=== PATIENT | female | born 1995 | race Caucasian/White ===

== ENCOUNTER → 2016-09-08 | Outpatient (CLI) | payer OTHER ==
[~2016-09-08] MED LIST: IBUP80TA PO; LEVO88TA3 PO; PERCOCET PO
--- NOTE | 2016-09-08 16:14 | REP ---
Soft-tissue ultrasound right wrist: History: Lump over the dorsum of the right wrist. Findings: Sonography over the palpable lump at the dorsum aspect of the right wrist at the level of the carpal bones shows two small fluid collections consistent with ganglion cyst. One appears superficial to the tendons and measures 3 mm. The other is seen deep to the extensor tendons and measures 5 mm in greatest diameter. No other abnormality is appreciated. Impression: Findings consistent with small ganglion cysts. Signed by Severo Mercado MD 09/08/2016 05:00 P
== END ==
LOC: M RAD 14:20
PROVIDERS: ATTEND Nurse Practitioner Adult Health
DX: M67.431 Ganglion, right wrist (principal)

== ENCOUNTER → 2018-02-05 | Outpatient (REF) | payer OTHER, MEDICAID ==
[2018-02-05 12:47] LABS: BASO % 0.2 % (0.0-1.0); EOS # 0.1 10^3/uL (0.0-0.50); EOS % 1.1 % (0.0-3.0); HEMATOCRIT 41.4 % (36.0-47.0); HEMOGLOBIN 13.5 g/dl (12.0-15.5); IMMATURE GRANULOCYTE % 0.2 % (0-3.0); LYMPH # 1.7 10^3/uL (1.5-6.5); LYMPH % 29.9 % (24.0-44.0); MEAN CORPUSCULAR HEMOGLOBIN 29.2 pg (27.0-33.0); MEAN CORPUSCULAR HGB CONC 32.6 g/dl (32.0-36.5); MEAN CORPUSCULAR VOLUME 89.6 fl (80.0-96.0); MONO # 0.5 10^3/uL (0.0-0.8); MONO % 8.9 % (0.0-5.0); NEUTROPHILS # 3.4 10^3/uL (1.8-7.7); NEUTROPHILS % 59.7 % (36.0-66.0); PLATELET COUNT, AUTOMATED 216 10^3/uL (150-450); RED BLOOD COUNT 4.62 10^6/uL (4.00-5.40); RED CELL DISTRIBUTION WIDTH 13.6 % (11.5-14.5); WHITE BLOOD COUNT 5.7 10^3/uL (4.0-10.0)
[2018-02-05 13:15] LABS: TOTAL 25(OH) VITAMIN D 15.6 NG/ML (30.0-100.0)
[2018-02-05 13:20] LABS: ALBUMIN 4.1 GM/DL (3.2-5.2); ALBUMIN/GLOBULIN RATIO 1.32 (1.00-1.93); ALKALINE PHOSPHATASE 46 U/L (45-117); ALT/SGPT 15 U/L (12-78); ANION GAP 9 MEQ/L (8-16); AST/SGOT 8 U/L (7-37); BILIRUBIN,TOTAL 0.5 MG/DL (0.2-1.0); BLOOD UREA NITROGEN 10 MG/DL (7-18); CARBON DIOXIDE LEVEL 26 MEQ/L (21-32); CHLORIDE LEVEL 107 MEQ/L (98-107); CREATININE FOR GFR 0.71 MG/DL (0.55-1.30); GLOMERULAR FILTRATION RATE > 60.0 (>60); GLUCOSE, FASTING 74 MG/DL (70-100); IRON (FE) 137 UG/DL (50-170); POTASSIUM SERUM 4.4 MEQ/L (3.5-5.1); SODIUM LEVEL 142 MEQ/L (136-145); T UPTAKE 29 % (30-39); THYROXINE (T4) 5.8 UG/DL (4.5-12.0); TOTAL PROTEIN 7.2 GM/DL (6.4-8.2)
[2018-02-05 13:21] LABS: FREE THYROXINE INDEX 1.7 % (1.3-4.8)
== END ==
LOC: M LAB REF 12:35
DX: E03.9 Hypothyroidism, unspecified (principal)

== ENCOUNTER → 2018-03-22 | Outpatient (REF) | payer OTHER ==
[2018-03-22 14:59] LABS: CHLAMYDIA DNA AMPLIFICATION NEGATIVE (NEGATIVE); GC DNA AMPLIFICATION NEGATIVE (NEGATIVE)
== END ==
LOC: M WUC 12:24
DX: N39.0 Urinary tract infection, site not specified (principal)
CPT/HCPCS: 87186

== ENCOUNTER → 2018-05-27 | Outpatient (REF) | payer OTHER ==
[2018-05-27 20:12] LABS: CHLAMYDIA DNA AMPLIFICATION NEGATIVE (NEGATIVE); GC DNA AMPLIFICATION NEGATIVE (NEGATIVE)
== END ==
LOC: M LAB REF 17:14
DX: R30.0 Dysuria (principal)

== ENCOUNTER → 2018-06-21 | Outpatient (REF) | payer OTHER ==
[2018-06-21 19:58] LABS: TOTAL 25(OH) VITAMIN D 47.2 NG/ML (30.0-100.0)
== END ==
LOC: M LAB REF 18:53
DX: E55.9 Vitamin D deficiency, unspecified (principal)
CPT/HCPCS: 82306

== ENCOUNTER → 2019-10-07 | Outpatient (REF) | payer OTHER ==
[2019-10-07 17:16] LABS: HEMATOCRIT 38.8 % (36.0-47.0); HEMOGLOBIN 12.5 g/dl (12.0-15.5); MEAN CORPUSCULAR HEMOGLOBIN 29.2 pg (27.0-33.0); MEAN CORPUSCULAR HGB CONC 32.2 g/dl (32.0-36.5); MEAN CORPUSCULAR VOLUME 90.7 fl (80.0-96.0); PLATELET COUNT, AUTOMATED 208 10^3/uL (150-450); RED BLOOD COUNT 4.28 10^6/uL (4.00-5.40); WHITE BLOOD COUNT 11.2 10^3/uL (4.0-10.0)
[2019-10-07 17:34] LABS: CREATININE,RANDOM URINE 25.9 MG/DL; TOTAL PROTEIN,RANDOM URINE < 5.0 MG/DL (0.0-12.0)
[2019-10-07 17:37] LABS: ALT/SGPT 14 U/L (12-78); BILIRUBIN,TOTAL 0.3 MG/DL (0.2-1.0); GLOMERULAR FILTRATION RATE > 60.0 (>60); LDH LACTATE DEHYDROGENASE 127 U/L (84-246); URIC ACID 2.5 MG/DL (2.6-6.0)
[2019-10-07 17:59] LABS: HEPATITIS B SURFACE ANTIGEN NEGATIVE (NEGATIVE); RUBELLA IgG QUALITATIVE IMMUNE (IMMUNE)
[2019-10-07 18:27] LABS: HEPATITIS C VIRUS ABY INDEX 0.1 INDEX (<0.8)
[2019-10-07 18:28] LABS: HIV 1&2 SCREEN CENTAUR NEGATIVE (NEGATIVE)
[2019-10-07 18:48] LABS: CHLAMYDIA DNA AMPLIFICATION NEGATIVE (NEGATIVE); GC DNA AMPLIFICATION NEGATIVE (NEGATIVE)
== END ==
LOC: M PLALAB 14:17
PROVIDERS: ATTEND Advanced Practice Midwife
DX: O34.211 Maternal care for low transverse scar from previous cesarean delivery (principal); Z3A.00 Weeks of gestation of pregnancy not specified

== ENCOUNTER → 2019-11-11 | Outpatient (CLI) | payer OTHER | LOC: M WHC 11:19 | PROVIDERS: ATTEND Advanced Practice Midwife | DX: Z53.9 Procedure and treatment not carried out, unspecified reason (principal); O34.211 Maternal care for low transverse scar from previous cesarean delivery; Z3A.00 Weeks of gestation of pregnancy not specified ==

== ENCOUNTER → 2019-11-13 | Outpatient (REF) | payer OTHER ==
[2019-11-13 18:59] LABS: FREE T4 0.86 NG/DL (0.76-1.46); THYROID STIMULATING HORMONE 7.51 uIU/ML (0.358-3.740)
== END ==
LOC: M PLALAB 09:07
PROVIDERS: ATTEND Advanced Practice Midwife
DX: O99.282 Endocrine, nutritional and metabolic diseases complicating pregnancy, second trimester (principal); O34.211 Maternal care for low transverse scar from previous cesarean delivery; Z12.4 Encounter for screening for malignant neoplasm of cervix; Z3A.00 Weeks of gestation of pregnancy not specified

== ENCOUNTER → 2019-12-10 | Outpatient (CLI) | payer OTHER ==
--- NOTE | 2019-12-10 18:26 | REP ---
Clinical: Anatomical evaluation. Comparison: None . Findings: Examination demonstrates a single live intrauterine in transverse presentation. motion is identified by technologist. Placenta is noted anterior and grade I with placental tip crossing the closed internal os on transvaginal images. Amniotic fluid volume is normal. Cervix measures 4.2 cm in length and appears closed. No evidence for nuchal cord. Gestational age by LMP 18 weeks 5 days with LUPE 05/07/2020 . Gestational age by current measurements 18 weeks 3 days with LUPE 05/09/2020 . FHR equals 136 beats per minute. BPD 4.0 cm 18 weeks 1 day HC 15.7 cm 18 weeks 4 days AC 12.6 cm 18 weeks 1 day FL 2.8 cm 18 weeks 4 days HL 2.7 cm 18 weeks 6 days HC/AC ratio 1.25 Estimated weight 237 grams ( 35th percentile). Anatomical assessment demonstrates normal structures including cranium, choroid plexus, cavum, cerebellum/posterior fossa, facial features, lungs, four-chamber heart/ventricular outflow tracts, diaphragm, stomach, cord insertion/three-vessel cord, kidneys/bladder, spine, and extremities. Impression: 1. Single live intrauterine in transverse lie demonstrating appropriate interval growth. 2. Anatomical assessment is complete and normal. 3. Placenta previa cannot be excluded.
== END ==
LOC: M WHC 14:32
PROVIDERS: ATTEND Advanced Practice Midwife
DX: O34.211 Maternal care for low transverse scar from previous cesarean delivery (principal)

== ENCOUNTER → 2019-12-24 | Outpatient (REF) | payer OTHER ==
[~2019-12-24] MED LIST changes: +PRENTAB9 PO; +SYNT50TA PO
[2019-12-24 18:11] LABS: FREE T4 1.02 NG/DL (0.76-1.46); THYROID STIMULATING HORMONE 1.75 uIU/ML (0.358-3.740)
== END ==
LOC: M PLALAB 14:31
PROVIDERS: ATTEND Advanced Practice Midwife
DX: O99.280 Endocrine, nutritional and metabolic diseases complicating pregnancy, unspecified trimester (principal)

== ENCOUNTER → 2020-01-09 | Outpatient (CLI) | payer OTHER ==
[~2020-01-09] MED LIST changes: -PRENTAB9 PO; -SYNT50TA PO
--- NOTE | 2020-01-09 16:29 | REP ---
Clinical: Placental location Comparison: 12/10/2019 . Findings: Examination demonstrates a single live intrauterine in cephalic presentation. motion is identified by technologist. Placenta is noted anterior and grade I without evidence for placenta previa or abruption. Amniotic fluid volume is normal. Cervix measures 3.5 cm in length and appears closed. No evidence for nuchal cord. Gestational age by LMP 23 weeks 0 days with LUPE 05/07/2020 . Gestational age by current measurements 22 weeks 4 days with LUPE 05/10/2020 . FHR equals 152 beats per minute. Estimated weight 560 grams ( 47th percentile). Impression: 1. Single live intrauterine in cephalic presentation demonstrating appropriate interval growth. 2. Anterior grade 1 placenta without evidence for placenta previa. Cervix measures 3.5 cm in length and is closed.
== END ==
LOC: M WHC 15:35
PROVIDERS: ATTEND Advanced Practice Midwife
DX: Z34.82 Encounter for supervision of other normal pregnancy, second trimester (principal)

== ENCOUNTER → 2020-02-06 | Outpatient (CLI) | payer OTHER ==
[~2020-02-06] MED LIST changes: +PRENTAB9 PO; +SYNT50TA PO
--- NOTE | 2020-03-26 15:21 | REP ---
LIMITED OBSTETRIC SONOGRAPHY HISTORY: Supervision of . Follow-up placenta previa. Transvaginal scanning. FINDINGS: Transabdominal and transvaginal scanning are performed. Scanning demonstrates a viable single intrauterine gestation in a breech lie. The placenta is anterior grade 1. The inferior tip of the anterior placenta is visualized transabdominally approximately 6.9 cm from the cervical os internally. There is no evidence of placenta previa. Closed cervical length measured transvaginally is 4.3 cm. heart rate is recorded at 140 beats per minute. Amniotic fluid is subjectively normal. LORETTA is normal at 17.0 cm. Four chamber heart, left-sided stomach, kidneys and bladder, abdominal wall cord insertion, and three-vessel cord are identified. IMPRESSION: No evidence of placenta previa. MTDD
== END ==
LOC: M WHC 10:10
PROVIDERS: ATTEND Advanced Practice Midwife
DX: Z34.82 Encounter for supervision of other normal pregnancy, second trimester (principal)

== ENCOUNTER → 2020-02-20 | Outpatient (REF) | payer OTHER ==
[2020-03-26 07:34] LABS: HEMATOCRIT 30.3 % (36.0-47.0); HEMOGLOBIN 9.9 g/dl (12.0-15.5); MEAN CORPUSCULAR HEMOGLOBIN 30.7 pg (27.0-33.0); MEAN CORPUSCULAR HGB CONC 32.7 g/dl (32.0-36.5); MEAN CORPUSCULAR VOLUME 93.8 fl (80.0-96.0); PLATELET COUNT, AUTOMATED 189 10^3/uL (150-450); RED BLOOD COUNT 3.23 10^6/uL (4.00-5.40)
[2020-04-08 07:22] LABS: FREE T4 0.94 NG/DL (0.76-1.46); THYROID STIMULATING HORMONE 3.06 uIU/ML (0.358-3.740)
== END ==
LOC: M SFHCWAGY 11:37
PROVIDERS: ATTEND Advanced Practice Midwife
DX: Z34.82 Encounter for supervision of other normal pregnancy, second trimester (principal)

== ENCOUNTER → 2020-04-09 | Outpatient (REF) | payer OTHER | LOC: M SFHCWAGY 16:46 | PROVIDERS: ATTEND Advanced Practice Midwife | DX: O34.211 Maternal care for low transverse scar from previous cesarean delivery (principal) ==

== ENCOUNTER 2020-04-20 16:36 | Inpatient (IN) | payer OTHER ==
[~2020-04-20] VITALS: Ht 157.5 cm; Wt 72.8 kg
[~2020-04-20 16:36] MED LIST changes: -PRENTAB9 PO; -SYNT50TA PO
[2020-04-20] MEDS ORDERED: PRENTAB9 PO (16:51)
[2020-04-20] MEDS ORDERED: SYNT50TA PO (16:57)
[2020-04-20 17:06] VITALS: BP 140/82
[2020-04-20 17:22] VITALS: BP 137/72
[2020-04-20 17:37] VITALS: BP 133/78
[2020-04-20 17:52] VITALS: BP 131/84
[2020-04-20 18:11] LABS: HEMATOCRIT 30.7 % (36.0-47.0); HEMOGLOBIN 9.9 g/dl (12.0-15.5); MEAN CORPUSCULAR HEMOGLOBIN 27.7 pg (27.0-33.0); MEAN CORPUSCULAR HGB CONC 32.2 g/dl (32.0-36.5); MEAN CORPUSCULAR VOLUME 85.8 fl (80.0-96.0); PLATELET COUNT, AUTOMATED 217 10^3/uL (150-450); RED BLOOD COUNT 3.58 10^6/uL (4.00-5.40); WHITE BLOOD COUNT 10.4 10^3/uL (4.0-10.0)
[2020-04-20 18:30] LABS: ALT/SGPT 16 U/L (12-78); BILIRUBIN,TOTAL 0.5 MG/DL (0.2-1.0); CREATININE FOR GFR 0.45 MG/DL (0.55-1.30); GLOMERULAR FILTRATION RATE > 60.0 (>60); LDH LACTATE DEHYDROGENASE 217 U/L (84-246); URIC ACID 3.2 MG/DL (2.6-6.0)
[2020-04-20 18:30] LABS: CREATININE,RANDOM URINE 60.2 MG/DL; TOTAL PROTEIN,RANDOM URINE 16.9 MG/DL (0.0-12.0)
[2020-04-20] MEDS: LR 1,000 ML IV SCH (19:18)
[2020-04-20] MEDS ORDERED: LACTATED RINGER'S 1000 ML IV STA (19:18)
--- NOTE | 2020-04-20 19:23 | HPEPDOC ---
Obstetrical History & Physical General Date of Admission Apr 20, 2020 at 16:36 Primary Care Physician: FABY NOEL CNM History of Present Illness Zack is a 25-year-old female who is a at 37.4 weeks gestation with an LUPE of 05/07/20. She initiated care in her first trimester with WW. Her preg tran has been complicated by a prior section, a history of preeclampsia and hypothyroidism. She was sent over from the office today with complaints of irregular headaches and was found to have an elevated BP in the office. She desires a repeat section. She rpeorts active mov ement. She denies contractions, leaking of fluid, preeclamptic symptoms currently, and vaginal bleeding. Chief Complaint: Gestational Hypertension, section Information Provided By: Patient Age: 25 : 2 Term: 1 Pre-term: 0 Abortions: 1 Livin Care Care: Good Care Dating Final EDC: May 07, 2020 LMP: Aug 01, 2019 EGA at Admission: 37.4 Antepartum Course Diagnos(e)s GHTN; prior section; hypothyroidism Height (inches): 62 Pre- weight (lbs.): 135 Admission Weight (lbs.): 160 Change in Weight (lbs.): 25 Past Medical History Past Obstetrical History : Past Obstetrical History: Primgravida Date of Delivery: Feb 26, 2015 Gestation: 37 Type of Delivery: Ceserean section (multiple late decelerations with placental abruption (50%)) Sex of : Male Complications: Yes (preeclampsia) [employer] History: No pertinent history Past Medical History Medical History José's thyroiditis Surgical History: section Family History Significant Family History: No pertinent family hx Social History Family situation: Spouse/partner home * Smoker: non-smoker Alcohol: Denies Drugs: denies Allergies Coded Allergies: No Known Allergies (Unverified , 02/25/15) Medications Scheduled Levothyroxine Sodium (Synthroid) 50 Mcg Tablet, 50 MCG PO DAILY No.137/Iron/Folic Acd ( Vitamin Tablet) 1 Each Tablet, 1 TAB PO DAILY Physical Examination Physical Examination GENERAL: Alert and oriented times three. ABDOMEN: Gravid and non-tender to touch. FETUS: Is vertex (VTX) by sterile vaginal examination (SVE), fetus is vertex (VTX) by Sarabjit. HEART RATE: Regular rate and rhythm. LUNGS: Clear to auscultation (CTA). EXTREMITIES: Generalized edema. No clonus. Deep tendon reflexes (DTRs) + 1. Vital Signs/I&O Vital Signs Date Time Temp Pulse Resp B/P (MAP) Pulse Ox O2 Delivery O2 Flow Rate FiO2 04/20/20 17:52 103 18 131/84 (100) 04/20/20 17:06 99.1 Laboratory Data 24H LABS Laboratory Tests 2 04/20/20 16:49: Serology Scanned Report Hepatitis B Testing 04/20/20 17:39: Urine Random Creatinine 60.2, Urine Random Total Protein 16.9H 04/20/20 17:40: Nucleated Red Blood Cells % (auto) 0.0, Glomerular Filtration Rate > 60.0, Uric Acid 3.2, Total Bilirubin 0.5, Aspartate Amino Transf (AST/SGOT) 18, Alanine Aminotransferase (ALT/SGPT) 16, Lactate Dehydrogenase 217, Syphilis Serology NONREACTIVE, Coronavirus (COVID-19)(PCR) NEGATIVE CBC/BMP Laboratory Tests 04/20/20 17:40 Urine Culture: No Growth Pertinent Laboratoy Data Blood Type: O+ RBC Antibody Screen: Negative HIV: Negative Hepatitis B: Negative Hepatitis C: Negative Rapid Plasma Reagin: Nonreactive Rubella: Immune Chlamydia/Gonorrhea: Negative Group B Streptococcus: Negative Assessment Heart Rate (FHR): 120 Variability: Moderate Accelerations: Positive Decelerations: None Tocometer Contractions: Yes Frequency: irregular Assessment/Plan Assessment IUP at 37.4 weeks gestation GHTN Category I FHR tracing prior LTCS Plan Admit to L&D. Plan of care collaborated with Dr. Whitt. OOB ad clara Diet: regular now then NPO after midnight. Group B Streptococcus (GBS) negative. Labs and intravenous (IV) per unit protocol. Preeclamptic labs ordered. Plan for repeat section in the morning. Anesthesia notified. Preoperative orders done. FABY NOEL CNM Apr 20, 2020 19:23
[2020-04-20] MEDS ORDERED: ceFAZolin SOD 2 GM in IV 1 EA IV ONE (19:30)
[2020-04-20] MEDS ORDERED: BICITRA 30ML SOLN UDC PO ONE (19:30)
[2020-04-20 22:04] VITALS: BP 131/84
[2020-04-21] VITALS (9 sets, daily range): BP systolic 126–148; BP diastolic 67–93
[2020-04-21 03:41] LABS: HEMATOCRIT 28.9 % (36.0-47.0); HEMOGLOBIN 9.2 g/dl (12.0-15.5); MEAN CORPUSCULAR HGB CONC 31.8 g/dl (32.0-36.5); MEAN CORPUSCULAR VOLUME 88.1 fl (80.0-96.0); PLATELET COUNT, AUTOMATED 204 10^3/uL (150-450); RED BLOOD COUNT 3.28 10^6/uL (4.00-5.40); WHITE BLOOD COUNT 8.8 10^3/uL (4.0-10.0)
[2020-04-21] MEDS: LEVOTHYROXINE 50MCG TABLET (0.05MG) PO SCH (06:33)
[2020-04-21] MEDS: LR 1,000 ML IV SCH (07:40)
[2020-04-21] MEDS ORDERED: ONDANSETRON 4MG/2ML VIAL IV PRN ×2 (10:15→10:30)
[2020-04-21] MEDS ORDERED: PERCOCET 5MG/325MG TAB PO PRN ×2 (10:15→10:30)
[2020-04-21] MEDS ORDERED: fentaNYL 100 MCG/2 ML INJECTION (J3010) IV PRN (10:15)
[2020-04-21] MEDS ORDERED: METOCLOPRAMIDE INJ 10MG/2ML VIAL (J2765 PER 1) IV PRN (10:15)
[2020-04-21] MEDS ORDERED: LR 1,000 ML IV SCH ×2 (10:15→10:21)
[2020-04-21] MEDS ORDERED: OXYTOCIN DRIP 30 UNITS in IV 1 EA IV SCH (10:21)
[2020-04-21] MEDS ORDERED: RHOGAM 300 MCG (1500 IU) INJ (J2790) IM SCH (10:30)
[2020-04-21] MEDS ORDERED: MEASLES,MUMPS,RUBELLA VACCINE INJ (MMR-II) (90707) SC SCH (10:30)
[2020-04-21] MEDS ORDERED: MOM 30ML SUSPENSION UDC PO PRN (10:30)
[2020-04-21] MEDS ORDERED: KETOROLAC 30 MG/ML 1ML VIAL IV SCH (10:30)
[2020-04-21] MEDS ORDERED: OXYTOCIN 30 UNITS IN 0.9% NaCl 500ML IV BAG (J2590) As Ordered ONE (10:39)
--- NOTE | 2020-04-21 13:45 | ROOPDOC ---
[facility] Report Of Operation Report of Operation DATE OF PROCEDURE: 04/21/20 SURGEON: Keira Whitt M.D. [employer] SUPERVISOR: Tyrese Otoole CNM ( essential for tissue retractions, exposure and delivery of ) PROCEDURE: Repeat section PREOPERATIVE DIAGNOSIS: 1. History of prior section 2. Gestational Hypertension POSTOPERATIVE DIAGNOSIS: 1. History of prior section 2. Gestational Hypertension ANESTHESIA: Spinal ESTIMATED BLOOD LOSS: 500 mL URINE OUTPUT: 25 mL INTRAVENOUS FLUIDS:1200 mL of lactated Ringer's solution PREOPERATIVE ANTIBIOTICS:. 2 g of Ancef 500 azithromycin OPERATIVE FINDINGS: Liveborn female , Apgars 8 and 9. Weight 3160 g or 6 lbs. 15 oz. SPECIMENS: None INDICATION FOR OPERATION: This patient is a 25-year-old 2 para 1 who presented at 37+ weeks with Gestational hypertension. Her history is significant for previous a section and she has been counseled on mode of delivery and desires repeat section. DESCRIPTION OF PROCEDURE: After informed consent was obtained and written consent was reviewed. The patient was brought to the operating room where spinal anesthesia was placed. She was then placed in the supine position with a left l ateral tilt. York catheter was placed and to gravity. Patient was then prepped and draped in the normal sterile fashion. A timeout operating room was performed identifying the patient, procedure be performed as well as drug allergies. Anesthesia was tested and deemed to be adequate. Previous skin incision was removed. The fascia was then scored and this incision was extended bilaterally. The fascia was then dissected off the underlying rectus muscle superiorly and inferiorly. The rectus muscles were then in the midline. The peritoneum is then entered. Vesicouterine peritoneum was then tented and excised and a bladder flap was created. Mobius retractor was then placed. Next, a curvilinear incision was then made in the lower uterine segment. Amniotomy was performed, productive, clear fluid. The head was brought to the level of the incision atraumatically and delivered along the shoulders and corpus. The cord was clamped x2. The infant was brought over to the warmer with a good cry. Placenta was drained and delivered grossly intact. The uterus was cleared of all clots and debris and the uterine incision was then closed using 0 Vicryl in a running locking fashion followed. The abdomen was suctioned. Surgical sites reinspected and noted be hemostatic. The retractor was then removed. The anterior peritoneum was then reapproximated with 3-0 Vicryl. The rectus muscles were reapproximated 3-0 Vicryl. The fascia was then closed using 0 Vicryl in a running nonlocking fashion. The subcutaneous tissues was then irrigated and suctioned. Several subdermal stitch is placed using 3-0 Vicryl and the skin was closed with 4-0 Monocryl and subcuticular fashion. This incision was then cleaned and dried and was dressed. The patient was then taken to recovery in stable condition. All counts were correct. My operating room surgical technician Tyrese Otoole, played in an essential role during the operation. She assisted with tissue identification retraction, delivery of the , as well as wound closure. KEIRA WHITT MD. Apr 21, 2020 13:45
[2020-04-21] MEDS: KETOROLAC 30 MG/ML 1ML VIAL IV SCH ×2 (15:58→22:06)
[2020-04-21] MEDS: DOCUSATE SODIUM 100 MG CAP PO SCH (22:06)
[2020-04-22 01:44] VITALS: BP 131/70
[2020-04-22] MEDS: KETOROLAC 30 MG/ML 1ML VIAL IV SCH (04:14)
[2020-04-22 06:00] VITALS: BP 134/85
--- NOTE | 2020-04-22 06:17 | IPNPDOC ---
Progress Note Date of Service: Apr 22, 2020 Day#: 1 Progress Note SUBJECT: Doing well without complaints. Ambulating, voiding and pain is well-c ontrolled. Reports minimal lochia. OBJECTIVE: VITAL SIGNS: Within normal limits, afebrile. Alert and oriented times three. Abdomen: Fundus firm at U-2. Soft, NTTP. Incision: dressed Ext: neg calf tenderness. ASSESSMENT: /postoperative day #1 status post delivery. Recovering in stable condition. PLAN: 1. Continue routine /postoperative care 2. Discharge plans for tomorrow VS, I&O, 24H, Fishbone Vital Signs/I&O Vital Signs Date Time Temp Pulse Resp B/P (MAP) Pulse Ox O2 Delivery O2 Flow Rate FiO2 04/22/20 01:44 98.0 74 18 131/70 (90) 98 04/21/20 23:00 Room Air I&O- Last 24 Hours up to 6 AM 04/22/20 06:00 Intake Total 4360 ml Output Total 2150 ml Balance 2210 ml JUMANA STEINBERG MD. Apr 22, 2020 06:17
[2020-04-22] MEDS: LEVOTHYROXINE 50MCG TABLET (0.05MG) PO SCH (06:19)
[2020-04-22] MEDS ORDERED: PERCOCET PO (07:52)
[2020-04-22] MEDS ORDERED: IBUP80TA PO (07:52)
[2020-04-22] MEDS: PRENATAL VITAMINS CHEWABLE TABLET PO SCH (08:04)
[2020-04-22] MEDS: DOCUSATE SODIUM 100 MG CAP PO SCH ×2 (08:04→20:50)
[2020-04-22 08:49] LABS: HEMATOCRIT 26.6 % (36.0-47.0); HEMOGLOBIN 8.3 g/dl (12.0-15.5); MEAN CORPUSCULAR HEMOGLOBIN 27.4 pg (27.0-33.0); MEAN CORPUSCULAR HGB CONC 31.2 g/dl (32.0-36.5); MEAN CORPUSCULAR VOLUME 87.8 fl (80.0-96.0); PLATELET COUNT, AUTOMATED 221 10^3/uL (150-450); RED BLOOD COUNT 3.03 10^6/uL (4.00-5.40); WHITE BLOOD COUNT 15.2 10^3/uL (4.0-10.0)
[2020-04-22 10:04] VITALS: BP 136/88
[2020-04-22] MEDS: IBUPROFEN 800 MG TAB PO SCH ×2 (12:03→19:57)
[2020-04-22] MEDS ORDERED: IBUPROFEN 800 MG TAB PO SCH (12:30)
[2020-04-22 14:05] VITALS: BP 121/73
[2020-04-22] MEDS: PERCOCET 5MG/325MG TAB PO PRN (16:02)
[2020-04-22 17:45] VITALS: BP 139/85
[2020-04-22 22:00] VITALS: BP 131/91
[2020-04-23 02:00] VITALS: BP 125/69
[2020-04-23] MEDS: PERCOCET 5MG/325MG TAB PO PRN (02:34)
[2020-04-23] MEDS: IBUPROFEN 800 MG TAB PO SCH (04:13)
[2020-04-23 06:00] VITALS: BP 132/90
[2020-04-23] MEDS: LEVOTHYROXINE 50MCG TABLET (0.05MG) PO SCH (06:12)
[2020-04-23] MEDS: PRENATAL VITAMINS CHEWABLE TABLET PO SCH (08:36)
[2020-04-23] MEDS: DOCUSATE SODIUM 100 MG CAP PO SCH (08:36)
[2020-04-23] MEDS ORDERED: INFLUENZA QUADRIVALENT PF VACCINE 0.5ML SYRINGE IM ONE (09:00)
--- NOTE | 2020-04-23 09:21 | DS ---
DATE OF ADMISSION: 04/20/2020 DATE OF DISCHARGE: 04/23/2020 HISTORY: Zack is a 25-year-old 2 para 2-0-0-2 now who underwent repeat section due to gestational hypertension and early labor. Her surgery was uncomplicated. She delivered a female, 6 pound 15 ounces (3160 grams,), Apgars 8 and 9, estimated blood loss (EBL) 500, surgeon Dr. Keira Whitt. SUBJECTIVE: The patient reports she is voiding well. She has had a bowel movement; has been out of bed for self-care, chester-care and care; tolerating p.o. fluids and a regular diet. Her pain has been well managed with p.o. pain medication. She is breast feeding successfully. She does desire discharge home today. OBJECTIVE: Temp 98.5, pulse 80, respirations 18, blood pressure 132/90. Her preoperative CBC with a hemoglobin of 9.9, hematocrit 30.7, platelets 217. Postoperative CBC: hemoglobin 8.3, hematocrit 26.6, platelets 221. Her breasts are soft and nontender. Her fundus is firm at umbilicus. The dressing is intact. There is no new drainage. Perineum is intact. Lochia rubra is scant. Bilateral lower extremities: 1+ edema. PLAN: Discharge the patient to home today. She is to follow up at [facility] for a 2-week incision check and an 8-week visit. Pain medications have been E-prescribed to her pharmacy by Dr. Keira Whitt. I did review discharge instructions that include breast care, incision care, chester- care, pelvis rest, activity, lifting restrictions, access to care and danger signs to report. The patient has had all of her questions answered and desires discharge. [facility]
[2020-04-23 10:51] VITALS: BP 147/92
== END 2020-04-23 11:00 | disposition home or self-care (01) | DRG 540 ==
LOC: M LDI 16:36 → M OBS 04-21 11:07
PROVIDERS: ADMIT Advanced Practice Midwife; ATTEND Obstetrics & Gynecology
PROC: 10D00Z1 Extraction of Products of Conception, Low, Open Approach (ICD-10-PCS; principal; 2020-04-21 07:32)
DX: O13.4 Gestational [pregnancy-induced] hypertension without significant proteinuria, complicating childbirth (principal); E03.9 Hypothyroidism, unspecified; Z3A.37 37 weeks gestation of pregnancy; O99.284 Endocrine, nutritional and metabolic diseases complicating childbirth; O34.211 Maternal care for low transverse scar from previous cesarean delivery; Z37.0 Single live birth

== ENCOUNTER → 2020-12-13 | Outpatient (REF) | payer OTHER ==
[~2020-12-13] MED LIST changes: +PRENTAB9 PO; +SYNT50TA PO
== END ==
LOC: M LAB REF 09:26
PROVIDERS: ATTEND Physician Assistant
DX: M54.5 Low back pain (principal)

== ENCOUNTER → 2021-01-19 | Outpatient (REF) | payer OTHER | LOC: M LAB REF 19:12 | PROVIDERS: ATTEND Surgery | DX: R59.0 Localized enlarged lymph nodes (principal) ==

== ENCOUNTER → 2021-12-16 | Outpatient (CLI) | payer OTHER | LOC: M WUC 13:53 | PROVIDERS: ATTEND Physician Assistant | DX: M54.31 Sciatica, right side (principal) ==

== ENCOUNTER → 2021-12-28 | Outpatient (CLI) | payer OTHER | LOC: M SOG 09:12 | PROVIDERS: ATTEND Orthopaedic Surgery Hand Surgery | DX: M67.441 Ganglion, right hand (principal) ==

== ENCOUNTER 2022-02-12 18:44 | Emergency (ER) | payer OTHER ==
[~2022-02-12] VITALS: Ht 157.5 cm; Wt 60.5 kg
[2022-02-12 18:46] VITALS: BP 147/87
[2022-02-12 21:47] LABS: BASO % 0.2 % (0.0-1.0); EOS % 0.1 % (0.0-3.0); HEMATOCRIT 42.3 % (36.0-47.0); HEMOGLOBIN 13.3 g/dl (12.0-15.5); LYMPH # 1.2 10^3/uL (1.5-5.0); LYMPH % 7.3 % (24.0-44.0); MEAN CORPUSCULAR HEMOGLOBIN 28.1 pg (27.0-33.0); MEAN CORPUSCULAR HGB CONC 31.4 g/dl (32.0-36.5); MEAN CORPUSCULAR VOLUME 89.2 fl (80.0-96.0); MONO # 0.9 10^3/uL (0.0-0.8); MONO % 5.4 % (2.0-8.0); NEUTROPHILS # 14.4 10^3/uL (1.5-8.5); NEUTROPHILS % 86.6 % (36.0-66.0); PLATELET COUNT, AUTOMATED 237 10^3/uL (150-450); RED BLOOD COUNT 4.74 10^6/uL (4.00-5.40); WHITE BLOOD COUNT 16.7 10^3/uL (4.0-10.0)
[2022-02-12 22:24] LABS: ALBUMIN 3.9 GM/DL (3.2-5.2); ALT/SGPT 14 U/L (12-78); BILIRUBIN,DIRECT 0.2 MG/DL (0.0-0.2); BILIRUBIN,TOTAL 0.7 MG/DL (0.2-1.0); BLOOD UREA NITROGEN 6 MG/DL (7-18); CALCIUM LEVEL 9.4 MG/DL (8.5-10.1); CARBON DIOXIDE LEVEL 29 MEQ/L (21-32); CHLORIDE LEVEL 104 MEQ/L (98-107); CREATININE FOR GFR 0.56 MG/DL (0.55-1.30); GLOMERULAR FILTRATION RATE > 60.0 (>60); GLUCOSE, FASTING 106 MG/DL (70-100); LIPASE 64 U/L (73-393); SODIUM LEVEL 138 MEQ/L (136-145); TOTAL PROTEIN 7.5 GM/DL (6.4-8.2)
== END 2022-02-13 00:31 | disposition left against medical advice (07) ==
LOC: M ED 18:44
DX: Z53.21 Procedure and treatment not carried out due to patient leaving prior to being seen by health care provider (principal)

== ENCOUNTER → 2022-02-13 | Outpatient (REF) | payer OTHER ==
[2022-02-13 15:37] LABS: APPEARANCE, URINE TURBID (CLEAR); BACTERIA, URINE AUTO 2+ (NEGATIVE); BILIRUBIN, URINE AUTO NEGATIVE (NEGATIVE); BLOOD, URINE BLOOD 3+ (NEGATIVE); COLOR, URINE AMBER (YELLOW); GLUCOSE, URINE (UA) AUTO NEGATIVE (NEGATIVE); KETONE, URINE AUTO NEGATIVE (NEGATIVE); LEUKOCYTE ESTERASE, URINE AUTO 2+ (NEGATIVE); MUCUS, URINE LARGE (NEGATIVE); NITRITE, URINE AUTO POSITIVE (NEGATIVE); PROTEIN, URINE AUTO 2+ mg/dL (NEGATIVE); RBC, URINE AUTO TNTC /HPF (0-3); SPECIFIC GRAVITY URINE AUTO 1.017 (1.002-1.035); SQUAMOUS EPITHELIAL CELL UR AU 47 /HPF (0-6); TRANSITIONAL EPITHELIAL AUTO 1 /HPF; WBC, URINE AUTO TNTC /HPF (0-3)
== END ==
LOC: M LAB REF 15:15
PROVIDERS: ATTEND Physician Assistant Medical
DX: N39.0 Urinary tract infection, site not specified (principal)

== ENCOUNTER → 2022-12-07 | Outpatient (REF) | payer OTHER ==
[2022-12-07 17:55] LABS: THYROID STIMULATING HORMONE 2.089 uIU/ML (0.55-4.78)
[2022-12-07 17:56] LABS: TOTAL 25(OH) VITAMIN D 20.2 NG/ML (20.0-100.0)
== END ==
LOC: M LAB REF 16:32
PROVIDERS: ATTEND Family Medicine Addiction Medicine
DX: E55.9 Vitamin D deficiency, unspecified (principal); E03.9 Hypothyroidism, unspecified

== ENCOUNTER → 2025-03-04 | Outpatient (REF) | payer OTHER | LOC: M PLALAB 08:29 | PROVIDERS: ATTEND Nurse Practitioner Family | DX: Z53.9 Procedure and treatment not carried out, unspecified reason (principal); Z34.80 Encounter for supervision of other normal pregnancy, unspecified trimester ==

== ENCOUNTER → 2025-03-04 | Outpatient (CLI) | payer OTHER ==
[2025-03-04 12:37] LABS: PLATELET COUNT, AUTOMATED 224 10^3/uL (150-450)
[2025-03-04 13:05] LABS: FREE T4 0.89 NG/DL (0.89-1.76)
[2025-03-04 13:06] LABS: LDH LACTATE DEHYDROGENASE 151 U/L (120-246); TOTAL PROTEIN,RANDOM URINE 24.5 MG/DL (0.0-14.0)
[2025-03-04 13:10] LABS: ALT/SGPT 16 U/L (7.0-40); AST/SGOT 13 U/L (<34); CREATININE FOR GFR 0.49 MG/DL (0.55-1.30); GLOMERULAR FILTRATION RATE > 90.0 (>60)
[2025-03-04 13:31] LABS: HIV 1&2 SCREEN NEGATIVE (NEGATIVE)
[2025-03-04 13:40] LABS: HEPATITIS C VIRUS ABY INDEX < 0.02 INDEX (<0.8)
[2025-03-04 14:39] LABS: Trichomonas vaginalis (AMP) NOT DETECTED (NEGATIVE)
[2025-03-04 15:02] LABS: GC DNA AMPLIFICATION NEGATIVE (NEGATIVE)
== END ==
LOC: M PLALAB 08:52
PROVIDERS: ATTEND Nurse Practitioner Family
DX: Z34.80 Encounter for supervision of other normal pregnancy, unspecified trimester (principal)

== ENCOUNTER → 2025-05-13 | Outpatient (CLI) | payer OTHER | LOC: M RAD 12:46 | PROVIDERS: ATTEND Specialist | DX: Z34.82 Encounter for supervision of other normal pregnancy, second trimester (principal); Z3A.21 21 weeks gestation of pregnancy ==